=== PATIENT | female | born 1985 | race American Indian/Alaskan Native ===

== ENCOUNTER 2018-01-21 21:17 | Emergency (ER) | payer OTHER ==
[2018-01-21 22:11] VITALS: BP 133/90
--- NOTE | 2018-01-22 01:14 | Emergency Department Report ---
ED Fall HPI - General Chief Complaint: Fall Stated Complaint: FELL Time Seen by Provider: 01/22/18 00:55 Source: patient Mode of arrival: Ambulatory - History of Present Illness Initial Comments: 32-year-old -[place] female comes in stating she fell while getting out of the car. She has complaint of an abrasion to her right knee. Denies any active bleeding denies any head trauma. Has no other concerns. 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) Fall From: other (getting out the car) Fall Witnessed: no Place Fall Occurred: work Prolonged Down Time?: no Symptoms Prior to Fall: none Location: other (right knee) - Related Data Allergies Allergy/AdvReac Type Severity Reaction Status Date / Time No Known Allergies Allergy Unverified 01/21/18 22:10 ED Review of Systems ROS: Stated complaint: FELL Other details as noted in HPI Comment: All other systems reviewed and negative Skin: other (abrasion on right knee) ED Past Medical Hx - Past Medical History Previous Medical History?: No - Surgical History Additional Surgical History: - Social History Smoking Status: Never Smoker Substance Use Type: None ED Physical Exam - General Limitations: No Limitations General appearance: alert, in no apparent distress - Head Head exam: Present: atraumatic, normocephalic - Expanded Lower Extremity Exam Right Hip exam: Present: normal inspection Upper Leg exam: Present: normal inspection, full ROM Knee exam: Present: full ROM, abrasion Lower Leg exam: Present: normal inspection, full ROM Ankle exam: Present: normal inspection Foot/Toe exam: Present: normal inspection, full ROM ED Course Vital Signs 01/21/18 22:07 Temperature 98.1 F Pulse Rate 89 Respiratory 18 Rate Blood Pressure 133/90 O2 Sat by Pulse 100 Oximetry ED Medical Decision Making - Medical Decision Making Patient has been evaluated by this provider fast track. Patient has an abrasion to her right knee. She has cleaned it herself. SHe has no active bleeding. Discussed the patient she can follow-up with her primary care provider she has any other concerns. Patient verbalized understanding. Critical care attestation.: If time is entered above; I have spent that time in minutes in the direct care of this critically ill patient, excluding procedure time. ED Disposition Clinical Impression: Fall Qualifiers: Encounter type: initial encounter Qualified Code(s): W19.XXXA - Unspecified fall, initial encounter Abrasion of knee, right Qualifiers: Encounter type: initial encounter Qualified Code(s): S80.211A - Abrasion, right knee, initial encounter Disposition: - TO HOME OR SELFCARE Is pt being admited?: No Does the pt Need Aspirin: No Condition: Stable Instructions: Abrasion (ED) Additional Instructions: Keep abrasion clean and dry. Referrals: PRIMARY CARE,MD [Primary Care Provider] - 3-5 Days Forms: Work/School Release Form(ED)
== END 2018-01-22 01:19 | disposition home or self-care (01) ==
LOC: ED 21:17
DX: S80.211A Abrasion, right knee, initial encounter (principal); W19.XXXA Unspecified fall, initial encounter; Y93.89 Activity, other specified; Y92.89 Other specified places as the place of occurrence of the external cause; Y99.8 Other external cause status
CPT/HCPCS: 99282